=== PATIENT | male | born 1940 | race Caucasian/White ===

== ENCOUNTER 2017-03-30 18:23 | Emergency (ER) | payer MEDICARE, BC ==
--- NOTE | 2017-03-30 19:07 | EDM.PDOC ---
ED HPI GENERAL MEDICAL PROBLEM - General Chief Complaint: General Stated Complaint: ACHY ALL OVER Time Seen by Provider: 03/30/17 18:56 Source of Information: Reports: Patient, RN Notes Reviewed History Limitations: Reports: No Limitations - History of Present Illness INITIAL COMMENTS - FREE TEXT/NARRATIVE: 76-year-old gentleman presents emergency department a complaint of body aches all over mainly upper extremities above the waistline has no lower extremity body aches does have a history of coronary artery disease recently returned from [place], complains of shortness of breath symptoms we'll wax and waned at this time he feels asymptomatic. He says symptoms since last night. Denies any fevers or tick exposure Generalized Pain Score (Numeric/FACES): 8 - Related Data Allergies Allergy/AdvReac Type Severity Reaction Status Date / Time No Known Allergies Allergy Verified 03/30/17 18:38 Home Meds: Home Meds Aspirin 81 mg PO DAILY 03/30/17 [History] Carvedilol [Coreg] 25 mg PO BID 03/30/17 [History] Citalopram [Citalopram HBr] 20 mg PO DAILY 03/30/17 [History] Clopidogrel Bisulfate [Clopidogrel] 03/30/17 [History] Furosemide [Lasix] 20 mg PO DAILY 03/30/17 [History] Losartan [Cozaar] 100 mg PO DAILY 03/30/17 [History] Nitroglycerin [Nitrostat] 03/30/17 [History] Omeprazole 20 mg PO DAILY 03/30/17 [History] atorvaSTATin [Lipitor] 40 mg PO BEDTIME 03/30/17 [History] Past Medical History HEENT History: Reports: Glaucoma Cardiovascular History: Reports: CAD, High Cholesterol, Hypertension, NE Respiratory History: Reports: Sleep Apnea Other Respiratory History: c-pap Gastrointestinal History: Reports: Colon Polyp, GERD, Irritable Bowel Syndrome Genitourinary History: Reports: BPH, Prostate Disorder, Other (See Below) Other Genitourinary History: bleeding in the bladder Musculoskeletal History: Reports: Arthritis, Gout, Other (See Below) Other Musculoskeletal History: dislocated left shoulder Neurological History: Reports: Concussion Psychiatric History: Reports: Depression Endocrine/Metabolic History: Reports: Obesity/BMI 30+ Hematologic History: Reports: Anemia Oncologic (Cancer) History: Reports: Basal Cell Carcinoma Dermatologic History: Reports: Benign Melanoma - Past Surgical History Cardiovascular Surgical History: Reports: Coronary Artery Stent, Percutaneous Transluminal Angioplasty GI Surgical History: Reports: Appendectomy, Colonoscopy Other Male Surgeries/Procedures: prostrate laser surgery Musculoskeletal Surgical History: Reports: Knee Replacement Other Musculoskeletal Surgeries/Procedures:: both knees Social & Family History - Tobacco Use Smoking Status *Q: Never Smoker - Caffeine Use Caffeine Use: Reports: Coffee - Recreational Drug Use Recreational Drug Use: No ED ROS GENERAL - Review of Systems Review Of Systems: See Below Constitutional: Reports: Other (Body aches) HEENT: Reports: No Symptoms Respiratory: Reports: Shortness of Breath Cardiovascular: Reports: Chest Pain, Dyspnea on Exertion GI/Abdominal: Reports: No Symptoms. Denies: Nausea, Vomiting : Reports: No Symptoms Musculoskeletal: Reports: No Symptoms Skin: Reports: No Symptoms Neurological: Reports: No Symptoms ED EXAM, GENERAL - Physical Exam Exam: See Below Free Text/Narrative:: General: Male, not in any distress, alert and oriented x3 HEENT: head is atraumatic normocephalic, eyes pupils equal round reactive to light, sclera clear no conjunctivitis appreciated. Ears tympanic membranes clear and kuhn landmarks and light reflex are present bilaterally canals are clear. Nose no septal deviation, nares are clear, no blood present. Mouth mucosa is moist and pink no erythema or exudate noted in soft palate, tongue is midline uvula is midline, dentition is intact. Neck: Supple no thyromegaly no tracheal deviation. Nodes: Cervical nodes subclavicular nodes nontender no palpable lymphadenopathy noted. Lungs: clear to auscultation bilaterally with symmetrical respirations, no adventitious noise appreciated. CV: Regular rate and rhythm S1 and S2 appreciated no murmurs rubs or gallops noted. Abdomen: Soft, nontender, no palpable masses or organomegaly appreciated, no distention no guarding bowel sounds are present, . Neuro: Cranial nerves II through XII grossly intact Skin: Warm and dry, intact Extremities: No lower extremity edema appreciated, Course - Vital Signs Last Recorded V/S: Last Vital Signs Temp 97.7 F 03/30/17 18:31 Pulse 70 03/30/17 20:08 Resp 16 03/30/17 20:08 BP 162/82 H 03/30/17 20:08 Pulse Ox 95 03/30/17 20:08 - Orders/Labs/Meds Orders: Active Orders 24 hr Category Date Time Status Cardiac Monitoring [RC] .As Directed Care 03/30/17 19:03 Active EKG Documentation Completion [RC] ASDIRECTED Care 03/30/17 19:03 Active Chest 2V [CR] Stat Exams 03/30/17 19:03 Taken EKG 12 Lead [EK] Stat Ther 03/30/17 19:03 Ordered Labs: Laboratory Tests 03/30/17 03/30/17 03/30/17 Range/Units 19:15 19:15 19:40 WBC 7.8 (4.5-11.0) K/uL RBC 4.55 (4.30-5.90) M/uL Hgb 12.2 (12.0-15.0) g/dL Hct 37.7 L (40.0-54.0) % MCV 83 (80-98) fL MCH 27 (27-31) pg MCHC 32 (32-36) % Plt Count 177 (150-400) K/uL Neut % (Auto) 65 (36-66) % Lymph % (Auto) 21 L (24-44) % [place] % (Auto) 9 H (2-6) % Eos % (Auto) 4 (2-4) % Baso % (Auto) 1 (0-1) % Sodium 136 L (140-148) mmol/L Potassium 3.7 (3.6-5.2) mmol/L Chloride 103 (100-108) mmol/L Carbon Dioxide 26 (21-32) mmol/L Anion Gap 10.7 (5.0-14.0) mmol/L BUN 15 (7-18) mg/dL Creatinine 1.0 (0.8-1.3) mg/dL Est Cr Clr Drug Dosing 60.80 mL/min Estimated GFR (MDRD) > 60 (>60) Glucose 134 H (74-106) mg/dL Calcium 8.4 L (8.5-10.1) mg/dL Total Bilirubin 0.5 (0.2-1.0) mg/dL AST 17 (15-37) U/L ALT 22 (12-78) U/L Alkaline Phosphatase 95 (46-116) U/L Troponin I < 0.017 (0.000-0.056) ng/mL Saw-M-Lccqbvkevms Pept 397 (5-450) pg/mL Total Protein 6.8 (6.4-8.2) g/dL Albumin 3.6 (3.4-5.0) g/dL Globulin 3.2 (2.3-3.5) g/dL Albumin/Globulin Ratio 1.1 L (1.2-2.2) Lipase 128 (73-393) U/L Urine Color Yellow Urine Appearance Clear Urine pH 7.0 (4.5-8.0) Ur Specific [place] 1.010 (1.008-1.030) Urine Protein Negative (NEGATIVE) mg/dL Urine Glucose (UA) Normal (NEGATIVE) mg/dL Urine Ketones Negative (NEGATIVE) mg/dL Urine Occult Blood Negative (NEGATIVE) Urine Nitrite Negative (NEGAITVE) Urine Bilirubin Negative (NEGATIVE) Urine Urobilinogen Normal (NORMAL) mg/dL Ur Leukocyte Esterase Small (NEGATIVE) Urine RBC Not seen (0-5) Urine WBC 0-5 (0-5) Ur Epithelial Cells Not seen Amorphous Sediment Rare Urine Bacteria Not seen Urine Mucus Not seen Departure - Departure Time of Disposition: 20:23 Disposition: Home, Self-Care 01 Condition: good Clinical Impression: Body aches - Discharge Information Forms: ED Department Discharge Additional Instructions: Try nonsteroidal anti-inflammatories Please followup with your primary care provider in 3-5 days if not better, please call return to the emergency department with worsening of symptoms. - My Orders Last 24 Hours: My Active Orders 03/30/17 19:03 Cardiac Monitoring [RC] .As Directed EKG Documentation Completion [RC] ASDIRECTED Chest 2V [CR] Stat EKG 12 Lead [EK] Stat - Assessment/Plan Last 24 Hours: My Active Orders 03/30/17 19:03 Cardiac Monitoring [RC] .As Directed EKG Documentation Completion [RC] ASDIRECTED Chest 2V [CR] Stat EKG 12 Lead [EK] Stat Plan: Assessment Acuity = acute Site and laterality = arthralgias, kidney patient with known history of coronary artery disease Etiology = unclear etiology Manifestations = none Location of injury = home Lab values = CBC, CMP, troponin, urinalysis all within normal limits EKG demonstrates a sinus rhythm on appreciate any ST changes or depressions, chest x -ray I did review films myself I cannot appreciate any acute process, the official read from radiology is pending Plan I did review labs EKG chest x-ray results with him he is to try nonsteroidal anti-inflammatories follow up with his primary care in the next 3-5 days if no improvement will contact him if the radiology reading differs Patient was in agreement with the plan all questions were answered, they were instructed to return to the emergency department or call for worsening symptoms. This note was dictated using [employer] voice recognition software please call with any questions.
[2017-03-30 20:09] VITALS: BP 162/82
--- NOTE | 2017-03-31 10:03 | CR ---
Chest 2V HISTORY: No Clinical Info FINDINGS: Mild cardio mainly.. Pulmonary vasculature within normal limits. No evidence for focal con solidation or cardiopulmonary process. IMPRESSION: No radiographic evidence for acute cardiopulmonary process.
== END 2017-03-30 20:35 | disposition home or self-care (01) ==
LOC: JP.ED 18:23
DX: M79.1 Myalgia (principal); I25.2 Old myocardial infarction; I10 Essential (primary) hypertension; I25.10 Atherosclerotic heart disease of native coronary artery without angina pectoris; E78.00 Pure hypercholesterolemia, unspecified; K21.9 Gastro-esophageal reflux disease without esophagitis; F32.9 Major depressive disorder, single episode, unspecified; E66.9 Obesity, unspecified; Z68.35 Body mass index [BMI] 35.0-35.9, adult; Z85.820 Personal history of malignant melanoma of skin; Z95.5 Presence of coronary angioplasty implant and graft; Z90.49 Acquired absence of other specified parts of digestive tract; Z96.651 Presence of right artificial knee joint; Z96.652 Presence of left artificial knee joint; Z79.82 Long term (current) use of aspirin; Z79.02 Long term (current) use of antithrombotics/antiplatelets; Z79.899 Other long term (current) drug therapy
CPT/HCPCS: 36415; 71020; 71020-26; 80053; 81001; 83690; 83880; 84484; 85025; 93005; 93010; 99284-25

== ENCOUNTER 2022-06-27 10:16 | Emergency (ER) | payer MEDICARE, OTHER ==
[2022-06-27 10:45] VITALS: BP 120/58; PULSE 76
== END 2022-06-27 11:15 | disposition home or self-care (01) ==
LOC: JP.ED 10:16
DX: U07.1 COVID-19 (principal); J40 Bronchitis, not specified as acute or chronic; I25.10 Atherosclerotic heart disease of native coronary artery without angina pectoris; E78.00 Pure hypercholesterolemia, unspecified; I10 Essential (primary) hypertension; I25.2 Old myocardial infarction; K21.9 Gastro-esophageal reflux disease without esophagitis; M10.9 Gout, unspecified; E66.9 Obesity, unspecified; Z79.82 Long term (current) use of aspirin; Z79.899 Other long term (current) drug therapy; Z86.16 Personal history of COVID-19; Z68.36 Body mass index [BMI] 36.0-36.9, adult
CPT/HCPCS: 99283

== ENCOUNTER 2024-04-07 06:37 | Inpatient (IN) | payer MEDICARE, OTHER ==
[2024-04-07 06:45] LABS: BASOPHILS ABSOLUTE AUTO 0.04 K/uL (0.00-0.10); BASOPHILS PERCENT AUTO 0.5 % (0.1-1.3); EOSINOPHILS PERCENT AUTO 1.1 % (0.0-5.4); HEMATOCRIT 39.3 % (38.4-49.7); HEMOGLOBIN 13.3 g/dL (12.9-16.9); IMMATURE GRAN PERCENT AUTO 0.2 % (0.0-0.7); LYMPHOCYTES ABSOLUTE AUTO 1.04 K/uL (0.8-3.3); LYMPHOCYTES PERCENT AUTO 11.8 % (11.4-47.7); MEAN CORPUSCULAR HEMOGLOBIN 31.9 pg (31.6-35.5); MEAN CORPUSCULAR HGB CONC 33.8 g/dL (31.6-35.5); MEAN CORPUSCULAR VOLUME 94.2 fL (81.4-99.0); MONOCYTES ABSOLUTE AUTO 0.58 K/uL (0.20-0.90); MONOCYTES PERCENT AUTO 6.6 % (3.3-12.6); NEUTROPHILS ABSOLUTE AUTO 7.03 K/uL (1.0-7.6); NEUTROPHILS PERCENT AUTO 79.8 % (40.0-78.1); PLATELET COUNT,PLT 164 K/uL (130-375); RED BLOOD CELL COUNT 4.17 M/uL (4.14-5.76); WHITE BLOOD CELL COUNT,WBC 8.8 K/uL (3.2-11.0)
[2024-04-07 06:47] LABS: IMMATURE GRAN ABSOLUTE AUTO 0.02 K/uL (0.00-0.23)
[2024-04-07 07:08] LABS: ANION GAP 15.8 mmol/L (5.0-14.0); CALCIUM 9.2 mg/dL (8.5-10.1); CREATININE 1.3 mg/dL (0.8-1.3); EST CRCL DRUG DOSING (CG) 40.25 mL/min; POTASSIUM,K 3.8 mmol/L (3.6-5.2); TROPONIN I HIGH SENSITIVITY 13.2 pg/mL (<=60.3)
[2024-04-07] MEDS: Sodium Chloride 0.9% 1,000 ML IV SCH (07:13)
[2024-04-07] MEDS: Albuterol 0.083% 2.5 MG/3 ML Neb Soln NEB ONE (07:39)
[2024-04-07] MEDS: Furosemide 40 MG/4 ML VIAL IVPUSH ONE (08:18)
[2024-04-07] MEDS: Sodium Chloride 0.9% 100 ML IV SCH (08:51)
[2024-04-07] MEDS: Sodium Chloride 0.9% 10 ML Syringe FLUSH ONE (08:51)
[2024-04-07] MEDS: Iopamidol 755 Mg/ML 100 ML Bottle IV SCH (08:51)
[2024-04-07] MEDS ORDERED: Ondansetron 4 MG Tab.DIS PO PRN (10:17)
[2024-04-07] MEDS ORDERED: Zolpidem 5 MG Tab PO PRN (10:17)
[2024-04-07] MEDS ORDERED: 50% Dextrose in Water 50 ML Syringe IVPUSH PRN (10:26)
[2024-04-07] MEDS ORDERED: Glucagon,Human Recombinant 1 MG Vial IM PRN (10:26)
[2024-04-07 10:56] LABS: HEMOGLOBIN A1C 6.9 % (4.5-6.2)
[2024-04-07 10:58] LABS: MAGNESIUM 1.7 mg/dL (1.8-2.4); PHOSPHORUS 3.5 mg/dL (2.5-4.9)
[2024-04-07] MEDS: Insulin Lispro 100 Unit/ML 3 ML KwikPen SUBCUT SCH (11:51)
[2024-04-07] MEDS: Acetaminophen 325 MG Tab PO PRN (12:31)
[2024-04-07] MEDS: Furosemide 20 MG/2 ML VIAL IVPUSH SCH (13:47)
[2024-04-07] MEDS: Carvedilol 12.5 MG Tab PO SCH (21:27)
[2024-04-07] MEDS: Apixaban 5 MG Tab PO SCH (21:29)
[2024-04-07] MEDS: Rosuvastatin 10 MG Tab PO SCH (21:58)
[2024-04-07] MEDS: Multivitamins with Iron/Calcium/Folic Acid/Minerals Tab PO SCH (21:59)
[2024-04-07] MEDS: Finasteride 5 MG Tab PO SCH (21:59)
[2024-04-07] MEDS: Aspirin 81 MG Tab.Chew PO SCH (21:59)
[2024-04-07] MEDS: Citalopram 20 MG Tab PO SCH (21:59)
[2024-04-08 05:33] LABS: HEMATOCRIT 36.1 % (38.4-49.7); HEMOGLOBIN 12.3 g/dL (12.9-16.9); MEAN CORPUSCULAR HEMOGLOBIN 31.9 pg (31.6-35.5); MEAN CORPUSCULAR HGB CONC 34.1 g/dL (31.6-35.5); MEAN CORPUSCULAR VOLUME 93.5 fL (81.4-99.0); RED BLOOD CELL COUNT 3.86 M/uL (4.14-5.76); WHITE BLOOD CELL COUNT,WBC 7.5 K/uL (3.2-11.0)
[2024-04-08 05:54] LABS: CALCIUM 9.1 mg/dL (8.5-10.1); CREATININE 1.1 mg/dL (0.8-1.3); EST CRCL DRUG DOSING (CG) 47.57 mL/min; POTASSIUM,K 3.5 mmol/L (3.6-5.2)
[2024-04-08 06:09] LABS: ANION GAP 14.5 mmol/L (5.0-14.0)
[2024-04-08 06:12] LABS: CHOLESTEROL HDL 43 mg/dL (40-60); CHOLESTEROL LDL DIRECT 45 mg/dL (0-100); CHOLESTEROL TOTAL 101 mg/dL (0-200); TRIGLYCERIDES 73 mg/dL (15-150)
[2024-04-08] MEDS ORDERED: Aspirin 81 MG Tab.Chew PO SCH (09:00)
[2024-04-08] MEDS ORDERED: Multivitamins with Iron/Calcium/Folic Acid/Minerals Tab PO SCH (09:00)
[2024-04-08] MEDS ORDERED: Finasteride 5 MG Tab PO SCH (09:00)
[2024-04-08] MEDS ORDERED: Citalopram 20 MG Tab PO SCH (09:00)
[2024-04-08] MEDS ORDERED: Rosuvastatin 10 MG Tab PO SCH (09:00)
[2024-04-08] MEDS: Allopurinol 100 MG Tab PO SCH (09:55)
[2024-04-08] MEDS: Cholecalciferol (Vitamin D3) 25 MCG Tab PO SCH (09:55)
[2024-04-08] MEDS: Pantoprazole 40 MG Tab.CR PO SCH (09:56)
[2024-04-08] MEDS: Tamsulosin 0.4 MG Cap.ER PO SCH (09:57)
[2024-04-08] MEDS: Losartan 50 MG Tab PO SCH (09:58)
[2024-04-08] MEDS: Empagliflozin 25 MG Tab PO SCH (09:59)
[2024-04-08 11:15] LABS: APPEARANCE,URINE CLEAR (CLEAR); BILIRUBIN,URINE NEGATIVE (NEGATIVE); COLOR,URINE YELLOW (YELLOW); GLUCOSE,URINE 500 mg/dL (NEGATIVE); KETONES,URINE NEGATIVE (NEGATIVE); LEUKOCYTE ESTERASE,URINE NEGATIVE (NEGATIVE); NITRITE,URINE NEGATIVE (NEGATIVE); OCCULT BLOOD,URINE NEGATIVE (NEGATIVE); PH,URINE 5.5 (5.0-8.0); PROTEIN,URINE NEGATIVE (NEGATIVE)
[2024-04-08 11:20] LABS: AMORPHOUS SEDIMENT,URINE NOT SEEN; BACTERIA,URINE NOT SEEN; EPITHELIAL CELLS,URINE FEW; MUCUS,URINE FEW; RBC,URINE 0-5 (0-5); WBC,URINE 0-5 (0-5)
[2024-04-08] MEDS: Sennosides/Docusate Sodium 50-8.6 MG Tab PO PRN (15:09)
[2024-04-08] MEDS: Magnesium Oxide 400 MG Tab PO SCH (21:17)
[2024-04-08] MEDS: Potassium Chloride 20 MEQ Tab.ER PO SCH (21:21)
[2024-04-09 05:43] LABS: CALCIUM 9.2 mg/dL (8.5-10.1); EST CRCL DRUG DOSING (CG) 52.33 mL/min; MAGNESIUM 1.9 mg/dL (1.8-2.4); POTASSIUM,K 3.3 mmol/L (3.6-5.2)
[2024-04-09 05:50] LABS: ANION GAP 14.3 mmol/L (5.0-14.0)
[2024-04-09] MEDS: Potassium Chloride 10 MEQ in Premix Bag 1 BAG IV SCH (10:08)
[2024-04-09] MEDS: Potassium Chloride 20 MEQ Tab.ER PO ONE (13:47)
[2024-04-09] MEDS: Polyethylene Glycol 3350 Powder 17 GM Packet PO PRN (13:48)
[2024-04-10 05:49] LABS: CALCIUM 9.5 mg/dL (8.5-10.1); EST CRCL DRUG DOSING (CG) 52.33 mL/min; POTASSIUM,K 3.7 mmol/L (3.6-5.2)
[2024-04-10 06:05] LABS: ANION GAP 15.7 mmol/L (5.0-14.0)
[2024-04-10 11:11] VITALS: BP 114/50; PULSE 54
== END 2024-04-10 14:20 | disposition home or self-care (01) | DRG 291 ==
LOC: JP.ED 06:37 → JP.ICU 10:17 → UNDOADMIN 10:54 → UNDODISIN 04-10 14:20
PROVIDERS: ADMIT Internal Medicine; ATTEND Internal Medicine
DX: J81.1 Chronic pulmonary edema (principal); I11.0 Hypertensive heart disease with heart failure; J96.01 Acute respiratory failure with hypoxia; I10 Essential (primary) hypertension; E87.1 Hypo-osmolality and hyponatremia; I25.10 Atherosclerotic heart disease of native coronary artery without angina pectoris; E66.9 Obesity, unspecified; M19.90 Unspecified osteoarthritis, unspecified site; Z86.16 Personal history of COVID-19; Z95.1 Presence of aortocoronary bypass graft; Z79.82 Long term (current) use of aspirin; Z79.84 Long term (current) use of oral hypoglycemic drugs; Z79.899 Other long term (current) drug therapy; I50.9 Heart failure, unspecified; E11.9 Type 2 diabetes mellitus without complications; H40.9 Unspecified glaucoma; E87.6 Hypokalemia; R50.9 Fever, unspecified; E83.42 Hypomagnesemia; E78.00 Pure hypercholesterolemia, unspecified; G47.33 Obstructive sleep apnea (adult) (pediatric); K21.9 Gastro-esophageal reflux disease without esophagitis; N40.0 Benign prostatic hyperplasia without lower urinary tract symptoms; F32.A Depression, unspecified; Z96.659 Presence of unspecified artificial knee joint; D64.9 Anemia, unspecified; Z85.828 Personal history of other malignant neoplasm of skin; Z86.010 Personal history of colon polyps; I25.2 Old myocardial infarction; Z95.5 Presence of coronary angioplasty implant and graft; Z90.49 Acquired absence of other specified parts of digestive tract; Z79.4 Long term (current) use of insulin; Z98.42 Cataract extraction status, left eye; Z98.41 Cataract extraction status, right eye; Z87.891 Personal history of nicotine dependence
CPT/HCPCS: 36415; 71045; 71045-26; 71046; 71046-26; 71275; 71275-26; 80048; 80061; 81001; 82947; 83036; 83735; 83880; 84100; 84443; 84484; 85025; 85027; 85379; 93005; 93010; 94640; 96374; 99222; 99232; 99239; 99285; 99285-25; A9270-GY; J1815; J1940; J3480; J3490; J7030; Q9967

== ENCOUNTER 2025-04-18 09:23 | Emergency (ER) | payer MEDICARE, OTHER ==
[2025-04-18 09:41] VITALS: BP 138/49; PULSE 82
== END 2025-04-18 10:09 | disposition home or self-care (01) ==
LOC: JP.ED 09:23
DX: L03.211 Cellulitis of face (principal); I10 Essential (primary) hypertension; E78.00 Pure hypercholesterolemia, unspecified; I25.10 Atherosclerotic heart disease of native coronary artery without angina pectoris; K21.9 Gastro-esophageal reflux disease without esophagitis; E66.9 Obesity, unspecified; Z68.35 Body mass index [BMI] 35.0-35.9, adult; Z86.16 Personal history of COVID-19; Z90.49 Acquired absence of other specified parts of digestive tract; Z79.899 Other long term (current) drug therapy; Z79.82 Long term (current) use of aspirin; Z79.84 Long term (current) use of oral hypoglycemic drugs
CPT/HCPCS: 99283

== ENCOUNTER 2025-07-02 10:28 | Emergency (ER) | payer MEDICARE, OTHER ==
[2025-07-02 13:10] VITALS: BP 127/58; PULSE 69
[2025-07-02] MEDS: Lidocaine 1% with EPINEPHrine 1:100,000 20 ML MDV INJECT ONE (13:43)
[2025-07-02] MEDS: Bacitracin Oint 1 GM U/D Packet TOP ONE (13:43)
== END 2025-07-02 13:45 | disposition home or self-care (01) ==
LOC: JP.ED 10:28
DX: L02.415 Cutaneous abscess of right lower limb (principal); L29.9 Pruritus, unspecified; I10 Essential (primary) hypertension; K21.9 Gastro-esophageal reflux disease without esophagitis; M19.90 Unspecified osteoarthritis, unspecified site; E78.00 Pure hypercholesterolemia, unspecified; E66.9 Obesity, unspecified; Z79.82 Long term (current) use of aspirin; Z79.899 Other long term (current) drug therapy; Z90.49 Acquired absence of other specified parts of digestive tract; Z68.34 Body mass index [BMI] 34.0-34.9, adult
CPT/HCPCS: 10060; 99282; J2004